=== PATIENT | male | born 1990 | race American Indian/Alaskan Native ===

== ENCOUNTER 2016-08-22 22:45 | Emergency (ER) | payer MEDICAID, OTHER ==
[~2016-08-22] VITALS: Ht 188 cm; Wt 108.9 kg
[~2016-08-22 22:45] MED LIST: ALBU0.084; PROAIR
[2016-08-22] MEDS ORDERED: ALBUTEROL SULF 2.5 MG/0.5ML(0.5%) NEB SOLN NEB ONE (23:30)
[2016-08-22] MEDS ORDERED: IPRATROPIUM BROM 0.5 MG/2.5ML INH SOL NEB ONE (23:30)
[2016-08-22] MEDS ORDERED: methylPREDNISolone SOD SUCC 125 MG/2 ML VL IV ONE (23:45)
[2016-08-23] MEDS ORDERED: LORazepam 2MG/ML-1ML VIAL IV ONE (00:15)
[2016-08-23 01:20] LABS: Basophils # (auto) 0.1 uL; Basophils % (auto) 0.6 % (0.0-2.0); Eosinophils # (auto) 0.1 uL; Eosinophils % (auto) 1.7 % (0.0-7.0); Hemoglobin 15.1 g/dL (13.5-17.5); Lymphocytes # (auto) 1.1 uL; Lymphocytes % (auto) 12.9 % (10.0-50.0); Mean Corpuscular Hemoglobin 30.7 pg (28.0-32.0); Mean Corpuscular Hgb Conc. 32.9 g/dL (32.0-36.0); Mean Corpuscular Volume 93.1 fL (80.0-100.0); Mean Platelet Volume 9.4 fL (7.4-10.4); Monocytes % (auto) 12.1 % (0.0-12.0); Neutrophils % (auto) 72.7 % (37.0-80.0); Platelet Count (auto) 249 10^3/uL (140-450); Red Cell Distribution Width 12.6 % (11.6-16.0); White Blood Cell 8.2 10^3/uL (4.4-10.8)
[2016-08-23 01:21] LABS: Albumin 3.8 g/dL (3.4-5.0); BUN/Creatinine Ratio 12.8; Calcium 8.8 mg/dL (8.5-10.1); Magnesium 1.8 mg/dL (1.6-2.6); Potassium 3.5 mmol/L (3.5-5.1)
[2016-08-23 01:24] LABS: Bilirubin, Total 0.4 mg/dL (0.2-1.0); Total Protein 7.3 g/dL (6.4-8.2)
[2016-08-23] MEDS ORDERED: diphenhdrAMINE HCL 50 MG/1 ML VL ONE (01:36)
[2016-08-23] MEDS ORDERED: ALBUTEROL SULF 2.5 MG/0.5ML(0.5%) NEB SOLN NEB ONE (02:00)
[2016-08-23] MEDS ORDERED: diphenhdrAMINE HCL 50 MG/1 ML VL IV ONE (02:00)
[2016-08-23] MEDS ORDERED: IPRATROPIUM BROM 0.5 MG/2.5ML INH SOL NEB ONE (02:00)
[2016-08-23] MEDS ORDERED: SODIUM CHLORIDE 0.9% 1,000 ML IV ONE (02:00)
[2016-08-23 04:00] VITALS: BP 121/71
[2016-08-24] MEDS ORDERED: ALPR0.25 PO (09:57)
== END 2016-08-23 06:53 | disposition left against medical advice (07) ==
LOC: ER 23:04
DX: J45.909 Unspecified asthma, uncomplicated (principal); R06.02 Shortness of breath; Z53.21 Procedure and treatment not carried out due to patient leaving prior to being seen by health care provider
CPT/HCPCS: 36415; 36600; 71020; 80053; 82805; 83735; 85025; 94640; 94761; 96361; 96374; 96375; J1200; J2060; J2930

== ENCOUNTER 2016-08-24 05:44 | Emergency (ER) | payer MEDICAID ==
[~2016-08-24] VITALS: Ht 185.4 cm; Wt 108.9 kg
[2016-08-24 06:39] LABS: Basophils # (auto) 0 uL; Basophils % (auto) 0.1 % (0.0-2.0); Eosinophils # (auto) 0 uL; Eosinophils % (auto) 0.1 % (0.0-7.0); Hematocrit 44.7 % (41.0-53.0); Hemoglobin 14.9 g/dL (13.5-17.5); Lymphocytes # (auto) 0.7 uL; Mean Corpuscular Hemoglobin 31.2 pg (28.0-32.0); Mean Corpuscular Hgb Conc. 33.4 g/dL (32.0-36.0); Mean Corpuscular Volume 93.2 fL (80.0-100.0); Mean Platelet Volume 8.9 fL (7.4-10.4); Monocytes # (auto) 0.7 uL; Monocytes % (auto) 7.8 % (0.0-12.0); Neutrophils # (auto) 7.8 uL; Platelet Count (auto) 249 10^3/uL (140-450); Red Cell Distribution Width 13.1 % (11.6-16.0); White Blood Cell 9.2 10^3/uL (4.4-10.8)
[2016-08-24 07:07] LABS: INR 1.08 (0.9-1.15); Prothrombin Time 11.1 sec (9.37-12.3)
[2016-08-24 07:33] LABS: Albumin 3.9 g/dL (3.4-5.0); BUN/Creatinine Ratio 14.3; Bilirubin, Total 0.6 mg/dL (0.2-1.0); Calcium 8.5 mg/dL (8.5-10.1); Magnesium 1.9 mg/dL (1.6-2.6); Potassium 3.7 mmol/L (3.5-5.1); Total Protein 7.6 g/dL (6.4-8.2)
[2016-08-24] MEDS ORDERED: ALBUTEROL SULF 2.5 MG/0.5ML(0.5%) NEB SOLN HHN STA (08:58)
[2016-08-24] MEDS ORDERED: methylPREDNISolone SOD SUCC 125 MG/2 ML VL IV ONE (09:00)
[2016-08-24] MEDS ORDERED: IPRATROPIUM BROM 0.5 MG/2.5ML INH SOL NEB ONE (09:00)
[2016-08-24] MEDS ORDERED: SODIUM CHLORIDE 0.9% 1,000 ML IV ONE (09:00)
[2016-08-24] MEDS ORDERED: ALPR0.25 PO (09:57)
[2016-08-24 10:43] VITALS: BP 132/65
== END 2016-08-24 10:46 | disposition home or self-care (01) ==
LOC: ER 05:46
DX: J45.901 Unspecified asthma with (acute) exacerbation (principal); F17.210 Nicotine dependence, cigarettes, uncomplicated; F12.10 Cannabis abuse, uncomplicated
CPT/HCPCS: 36415; 71010; 80053; 83735; 84484; 85025; 85610; 85730; 93005; 94644; 94761; 96361; 96374; 99285; G0434; J2930; J7030

== ENCOUNTER → 2018-11-10 | Outpatient (CLI) | payer BC ==
[~2018-11-10] MED LIST changes: +ALPR0.25 PO
[2018-11-10 15:21] LABS: Urine Blood Negative /uL (Negative)
== END | disposition home or self-care (01) ==
LOC: LAB 14:53
PROVIDERS: ATTEND Urology
DX: R31.9 Hematuria, unspecified (principal)
CPT/HCPCS: 81003; 87086

== ENCOUNTER 2019-01-30 09:13 | Day surgery (SDC) | payer BC ==
[2019-01-24 13:21] LABS: Basophils # (auto) 0.1 uL; Basophils % (auto) 1.5 % (0.0-2.0); Eosinophils # (auto) 0.2 uL; Eosinophils % (auto) 2.9 % (0.0-7.0); Hematocrit 48.7 % (41.0-53.0); Hemoglobin 16.9 g/dL (13.5-17.5); Lymphocytes # (auto) 2.1 uL; Lymphocytes % (auto) 28.3 % (10.0-50.0); Mean Corpuscular Hgb Conc. 34.6 g/dL (32.0-36.0); Mean Corpuscular Volume 92.4 fL (80.0-100.0); Monocytes # (auto) 0.6 uL; Monocytes % (auto) 7.6 % (0.0-12.0); Neutrophils # (auto) 4.5 uL; Neutrophils % (auto) 59.7 % (37.0-80.0); Nucleated Red Blood Cells % 0.1 %; Platelet Count (auto) 282 10^3/uL (140-450); Red Blood Cells 5.27 10^6/uL (4.5-5.90); Red Cell Distribution Width 12.8 % (11.8-14.3); White Blood Cell 7.5 10^3/uL (4.4-10.8)
[2019-01-24 13:27] LABS: Albumin 4.2 g/dL (3.4-5.0); Anion Gap 8 (5-15); Calcium 9.6 mg/dL (8.5-10.1); Carbon Dioxide 28 mmol/L (21-32); Chloride 105 mmol/L (98-107); Glucose 89 mg/dL (74-106); Potassium 4.4 mmol/L (3.5-5.1); Sodium 141 mmol/L (136-145)
[2019-01-24 13:38] LABS: INR 0.94 (0.9-1.15); Partial Thromboplastin Time 26.9 sec (23.64-32.05)
[2019-01-24 13:41] LABS: Alanine Aminotransferase 54 U/L (16-61); Alkaline Phosphatase 136 U/L (45-117); Aspartate Aminotransferase 27 U/L (15-37); BUN/Creatinine Ratio 9.2; Blood Urea Nitrogen 10 mg/dL (7-18); GFR African American 105 mL/min; GFR Non-African American 87 mL/min
[2019-01-24 14:01] LABS: Bilirubin, Total 0.6 mg/dL (0.2-1.0); Total Protein 8.1 g/dL (6.4-8.2)
[2019-01-24 15:35] LABS: Urine Bacteria NONE SEEN /hpf (None Seen); Urine Blood Negative /uL (Negative); Urine Specific Gravity 1.016 (1.001-1.035); Urine WBC <1 /hpf (0 - 3)
[~2019-01-30] VITALS: Ht 182.9 cm; Wt 113.4 kg
[~2019-01-30 09:13] MED LIST changes: -ALBU0.084; +ALBUAER3 IN; +ALBUTEROL SULF 2.5 MG/0.5ML(0.5%) NEB SOLN NEB ONE; -ALPR0.25 PO; +CIPROFLOXACIN 400MG/200ML 200 ML IV ONE; +IPRATROPIUM BROM 0.5 MG/2.5ML INH SOL NEB ONE; -PROAIR
[2019-01-30] MEDS ORDERED: fentaNYL CITRATE 100 MCG/2 ML VL ONE (09:45)
[2019-01-30] MEDS ORDERED: ONDANSETRON HCL 4 MG/2 ML VIAL ONE (09:45)
[2019-01-30] MEDS ORDERED: PROPOFOL 10 MG/ML 20 ML IV ONE (09:45)
[2019-01-30] MEDS ORDERED: SODIUM CHLORIDE LOCK 10 ML ONE (09:45)
[2019-01-30] MEDS ORDERED: MIDAZOLAM HCL 1MG/1ML-2 ML VIAL ONE (09:45)
[2019-01-30] MEDS ORDERED: CIPROFLOXACIN 400MG/200ML 200 ML IV ONE (11:14)
[2019-01-30] MEDS ORDERED: METOCLOPRAMIDE HCL 5MG/ml INJ 2ml VIAL IV ONE (11:30)
[2019-01-30] MEDS ORDERED: HYDROmorphone HCL 2 MG/ML VL IV PRN (11:30)
[2019-01-30] MEDS ORDERED: KETOROLAC TROMETH 15 mg/ml 1ML VL IV ONE (11:30)
[2019-01-30] MEDS ORDERED: IPRATROPIUM BROM 0.5 MG/2.5ML INH SOL NEB ONE (12:15)
[2019-01-30] MEDS ORDERED: ALBUTEROL SULF 2.5 MG/0.5ML(0.5%) NEB SOLN NEB ONE (12:15)
[2019-01-30 13:00] VITALS: BP 112/69
[2019-01-30] MEDS ORDERED: ALBUTEROL SULF 2.5 MG/0.5ML(0.5%) NEB SOLN ONE (14:50)
== END 2019-01-30 13:10 | disposition home or self-care (01) ==
LOC: SUR 09:13
PROVIDERS: ATTEND Urology
DX: N36.8 Other specified disorders of urethra (principal); R31.9 Hematuria, unspecified; R32 Unspecified urinary incontinence; J45.909 Unspecified asthma, uncomplicated; K64.4 Residual hemorrhoidal skin tags; E66.8 Other obesity; I10 Essential (primary) hypertension; F31.9 Bipolar disorder, unspecified; F17.210 Nicotine dependence, cigarettes, uncomplicated; F41.9 Anxiety disorder, unspecified; Z68.35 Body mass index [BMI] 35.0-35.9, adult; Z79.899 Other long term (current) drug therapy; Z88.1 Allergy status to other antibiotic agents
CPT/HCPCS: 36415; 52000; 80053; 81001; 85025; 85610; 85730; C1769; J0744; J2250; J2405; J2704; J3010; J7030

== ENCOUNTER 2022-03-20 12:14 | Emergency (ER) | payer BC ==
[~2022-03-20] VITALS: Ht 185.4 cm; Wt 123.3 kg
[~2022-03-20 12:14] MED LIST changes: -ALBUTEROL SULF 2.5 MG/0.5ML(0.5%) NEB SOLN NEB ONE; -CIPROFLOXACIN 400MG/200ML 200 ML IV ONE; -IPRATROPIUM BROM 0.5 MG/2.5ML INH SOL NEB ONE
[2022-03-20 13:30] LABS: Urine Bacteria NONE SEEN /hpf (None Seen); Urine Blood Negative /uL (Negative); Urine Mucus FEW (None Seen); Urine WBC <1 /hpf (0 - 3)
[2022-03-20 13:48] LABS: Basophils # (auto) 0.1 10 ^3/uL (0-0.2); Basophils % (auto) 1.2 % (0.0-2.0); Eosinophils # (auto) 0.3 10 ^3/uL (0-0.8); Eosinophils % (auto) 3.6 % (0.0-7.0); Hematocrit 49.4 % (41.0-53.0); Hemoglobin 17.1 g/dL (13.5-17.5); Lymphocytes # (auto) 2.1 10 ^3/uL (0.4-5.4); Lymphocytes % (auto) 25.5 % (10.0-50.0); Mean Corpuscular Hemoglobin 31.3 pg (28.0-32.0); Mean Corpuscular Hgb Conc. 34.5 g/dL (32.0-36.0); Mean Corpuscular Volume 90.8 fL (80.0-100.0); Monocytes # (auto) 0.6 10 ^3/uL (0-1.3); Monocytes % (auto) 6.9 % (0.0-12.0); Neutrophils # (auto) 5.1 10 ^3/uL (1.6-8.6); Neutrophils % (auto) 62.8 % (37.0-80.0); Nucleated Red Blood Cells % 0.1 %; Red Blood Cells 5.45 10^6/uL (4.5-5.90); Red Cell Distribution Width 12.7 % (11.8-14.3); White Blood Cell 8.1 10^3/uL (4.4-10.8)
[2022-03-20] MEDS ORDERED: KETOROLAC TROMETH 60MG/2ML VIAL IM ONE (14:15)
[2022-03-20 14:22] LABS: Albumin 4.2 g/dL (3.4-5.0); Calcium 9.8 mg/dL (8.5-10.1); Potassium 4.1 mmol/L (3.5-5.1)
[2022-03-20 14:26] LABS: Bilirubin, Total 0.8 mg/dL (0.2-1.0); Total Protein 7.7 g/dL (6.4-8.2)
[2022-03-20] MEDS ORDERED: TRAM-297 PO (14:53)
[2022-03-20 16:40] VITALS: BP 108/84
== END 2022-03-20 16:45 | disposition home or self-care (01) ==
LOC: ER 12:14
DX: R10.9 Unspecified abdominal pain (principal); R11.0 Nausea; R61 Generalized hyperhidrosis; F17.210 Nicotine dependence, cigarettes, uncomplicated; F12.10 Cannabis abuse, uncomplicated; Z88.6 Allergy status to analgesic agent
CPT/HCPCS: 36415; 74176; 80053; 81001; 85025; 96372; 99284; J1885

== ENCOUNTER 2022-06-02 17:07 | Inpatient (IN) | payer BC ==
[~2022-06-02] VITALS: Ht 185.4 cm; Wt 127.3 kg
[~2022-06-02 17:07] MED LIST changes: +TRAM-297 PO
[2022-06-02] MEDS ORDERED: ALBUTEROL SULF 2.5 MG/0.5ML(0.5%) NEB SOLN NEB ONE ×4 (17:15→22:45)
[2022-06-02] MEDS ORDERED: IPRATROPIUM BROM 0.5 MG/2.5ML INH SOL NEB ONE ×3 (17:15→22:45)
[2022-06-02] MEDS ORDERED: DexAMETHasone SOD PHOS 10MG/1ML VIAL INJ IM ONE (17:15)
[2022-06-02] MEDS ORDERED: MAGNESIUM SULFATE 1GM/100ML 100 ML IV ONE (17:30)
[2022-06-02 17:54] LABS: Basophils # (auto) 0.1 10 ^3/uL (0-0.2); Eosinophils # (auto) 0.1 10 ^3/uL (0-0.8); Hematocrit 46.3 % (41.0-53.0); Hemoglobin 16.5 g/dL (13.5-17.5); Lymphocytes # (auto) 0.5 10 ^3/uL (0.4-5.4); Lymphocytes % (auto) 4.7 % (10.0-50.0); Mean Corpuscular Hemoglobin 32.7 pg (28.0-32.0); Mean Corpuscular Hgb Conc. 35.6 g/dL (32.0-36.0); Mean Corpuscular Volume 91.7 fL (80.0-100.0); Monocytes # (auto) 0.3 10 ^3/uL (0-1.3); Monocytes % (auto) 3.5 % (0.0-12.0); Neutrophils # (auto) 8.7 10 ^3/uL (1.6-8.6); Neutrophils % (auto) 89.8 % (37.0-80.0); Red Blood Cells 5.05 10^6/uL (4.5-5.90); Red Cell Distribution Width 13.4 % (11.8-14.3); White Blood Cell 9.7 10^3/uL (4.4-10.8)
[2022-06-02 18:03] LABS: Albumin 4.1 g/dL (3.4-5.0); Calcium 9.4 mg/dL (8.5-10.1); Potassium 4.7 mmol/L (3.5-5.1)
[2022-06-02 18:05] LABS: BUN/Creatinine Ratio 12.7
[2022-06-02 18:08] LABS: Bilirubin, Total 0.7 mg/dL (0.2-1.0); Total Protein 8.3 g/dL (6.4-8.2)
[2022-06-02] MEDS ORDERED: ALPRAZolam 0.5 MG TAB PO ONE (22:15)
[2022-06-02] MEDS ORDERED: HYDROcodone-ACET 5/325MG TAB PO ONE (22:15)
[2022-06-02] MEDS ORDERED: ACETAMINOPHEN 325 MG TAB PO PRN (23:15)
[2022-06-02] MEDS ORDERED: NITROGLYCERIN 0.4 MG SL TAB SL PRN (23:15)
[2022-06-02] MEDS ORDERED: ONDANSETRON HCL 4 MG/2 ML VIAL IV PRN (23:15)
[2022-06-02] MEDS ORDERED: MORPHINE SULFATE INJ 2 MG/ml SYRG IV PRN (23:15)
[2022-06-03] VITALS (7 sets, daily range): BP systolic 126–145; BP diastolic 66–76
[2022-06-03] MEDS: TEMAZEPAM 15 MG CAP PO PRN ×2 (01:15→22:14)
[2022-06-03] MEDS: ALBUTEROL SULF 2.5 MG/0.5ML(0.5%) NEB SOLN NEB SCH ×4 (02:24→13:29)
[2022-06-03] MEDS: IPRATROPIUM BROM 0.5 MG/2.5ML INH SOL NEB SCH ×5 (02:24→19:45)
[2022-06-03] MEDS ORDERED: ALPRAZolam 0.5 MG TAB PO ONE (03:30)
[2022-06-03 04:11] LABS: Basophils # (auto) 0 10 ^3/uL (0-0.2); Basophils % (auto) 0.3 % (0.0-2.0); Eosinophils # (auto) 0 10 ^3/uL (0-0.8); Hematocrit 45.5 % (41.0-53.0); Hemoglobin 15.9 g/dL (13.5-17.5); Lymphocytes # (auto) 0.5 10 ^3/uL (0.4-5.4); Mean Corpuscular Hemoglobin 32.4 pg (28.0-32.0); Mean Corpuscular Volume 92.6 fL (80.0-100.0); Monocytes # (auto) 0.2 10 ^3/uL (0-1.3); Neutrophils # (auto) 7.8 10 ^3/uL (1.6-8.6); Neutrophils % (auto) 91.7 % (37.0-80.0); Nucleated Red Blood Cells % 0.1 %; Red Blood Cells 4.92 10^6/uL (4.5-5.90); Red Cell Distribution Width 13.5 % (11.8-14.3); White Blood Cell 8.5 10^3/uL (4.4-10.8)
[2022-06-03 04:22] LABS: Calcium 9.5 mg/dL (8.5-10.1); Potassium 4.1 mmol/L (3.5-5.1)
[2022-06-03] MEDS: PANTOPRAZOLE 40 MG TAB PO SCH (09:00)
[2022-06-03] MEDS: methylPREDNISolone SOD SUCC 125 MG/2 ML VL IV SCH ×2 (09:01→21:17)
[2022-06-03] MEDS ORDERED: ALPR0.254 PO (09:20)
[2022-06-03] MEDS ORDERED: AZITHROMYCIN 250 MG TAB PO ONE (10:15)
[2022-06-03] MEDS ORDERED: ALBUTEROL SULF 2.5 MG/0.5ML(0.5%) NEB SOLN NEB ONE (16:15)
[2022-06-03] MEDS ORDERED: IOHEXOL 350 MG/ML 100ML IJ ONE (16:32)
[2022-06-03] MEDS ORDERED: LEVALBUTEROL HCL 1.25 MG/3 ML NEB NEB SCH (18:00)
[2022-06-03 18:27] LABS: Urine Bacteria NONE SEEN /hpf (None Seen); Urine Blood Negative /uL (Negative); Urine WBC <1 /hpf (0 - 3)
[2022-06-03 18:41] LABS: Amphetamine Screen, Urine NEGATIVE (NEGATIVE); Barbiturate Scree,Urine NEGATIVE (NEGATIVE); Benzodiazephine Screen, Urine POSITIVE (NEGATIVE); Cannabinoid Screen, Urine NEGATIVE (NEGATIVE); Cocaine Screen, Urine NEGATIVE (NEGATIVE); Phencyclidine Screen, Urine NEGATIVE (NEGATIVE)
[2022-06-03 18:49] LABS: Opiate Scree,Urine NEGATIVE (NEGATIVE)
[2022-06-03 18:55] LABS: Urine Specific Gravity > 1.050 (1.001-1.035)
[2022-06-03] MEDS: LEVALBUTEROL HCL 1.25 MG/3 ML NEB NEB SCH ×2 (19:45→22:09)
[2022-06-03] MEDS: ALPRAZolam 0.25 MG TAB PO SCH (21:17)
[2022-06-04] MEDS: IPRATROPIUM BROM 0.5 MG/2.5ML INH SOL NEB SCH ×5 (02:51→18:30)
[2022-06-04] MEDS: LEVALBUTEROL HCL 1.25 MG/3 ML NEB NEB SCH ×6 (02:51→23:39)
[2022-06-04 05:00] VITALS: BP 125/67
[2022-06-04] MEDS: traMADol HCL 50 MG TAB PO SCH ×5 (06:00→23:17)
[2022-06-04 08:00] VITALS: BP 121/68
[2022-06-04 09:00] VITALS: BP 121/60
[2022-06-04] MEDS: PANTOPRAZOLE 40 MG TAB PO SCH (09:59)
[2022-06-04] MEDS: methylPREDNISolone SOD SUCC 125 MG/2 ML VL IV SCH ×2 (09:59→21:50)
[2022-06-04] MEDS: AZITHROMYCIN 250 MG TAB PO SCH (10:00)
[2022-06-04] MEDS: ALPRAZolam 0.25 MG TAB PO SCH ×2 (10:00→21:50)
[2022-06-04] MEDS: NICOTINE 21MG/24 HR TOPICAL PATCH TD SCH (12:45)
[2022-06-04 13:00] VITALS: BP 132/79
[2022-06-04 17:00] VITALS: BP 126/74
[2022-06-04 22:00] VITALS: BP 142/77
[2022-06-04] MEDS: TEMAZEPAM 15 MG CAP PO PRN (23:13)
[2022-06-05] MEDS: IPRATROPIUM BROM 0.5 MG/2.5ML INH SOL NEB SCH ×3 (02:33→11:33)
[2022-06-05] MEDS: LEVALBUTEROL HCL 1.25 MG/3 ML NEB NEB SCH ×3 (02:33→11:33)
[2022-06-05] MEDS ORDERED: TEMAZEPAM 15 MG CAP PO ONE (02:45)
[2022-06-05 05:00] VITALS: BP 128/69
[2022-06-05] MEDS: traMADol HCL 50 MG TAB PO SCH ×2 (06:00→12:00)
[2022-06-05 09:00] VITALS: BP 140/86
[2022-06-05] MEDS: PANTOPRAZOLE 40 MG TAB PO SCH (10:36)
[2022-06-05] MEDS: methylPREDNISolone SOD SUCC 125 MG/2 ML VL IV SCH (10:36)
[2022-06-05] MEDS: ALPRAZolam 0.25 MG TAB PO SCH (10:37)
[2022-06-05] MEDS: AZITHROMYCIN 250 MG TAB PO SCH (10:38)
[2022-06-05] MEDS: NICOTINE 21MG/24 HR TOPICAL PATCH TD SCH (10:39)
[2022-06-05] MEDS ORDERED: FLUT500M2 INH (10:45)
[2022-06-05 12:00] VITALS: BP 114/80
== END 2022-06-05 12:40 | disposition home or self-care (01) | DRG 189 ==
LOC: ER 17:07 → TELE 23:19 → TELE-EAST 06-03 08:08
PROVIDERS: ADMIT Nurse Practitioner; ATTEND Internal Medicine
DX: J96.21 Acute and chronic respiratory failure with hypoxia (principal); J45.902 Unspecified asthma with status asthmaticus; F17.210 Nicotine dependence, cigarettes, uncomplicated; F41.9 Anxiety disorder, unspecified; Z20.822 Contact with and (suspected) exposure to COVID-19; Z71.6 Tobacco abuse counseling; Z88.8 Allergy status to other drugs, medicaments and biological substances
CPT/HCPCS: 36415; 71045; 71275; 80048; 80053; 80307; 81001; 82306; 83036; 83735; 84439; 84443; 84484; 85025; 85379; 87426; 93005; 93306; 93970; 94640; 96365; 96372; 99291; G0378; J1100

== ENCOUNTER 2023-02-01 19:25 | Inpatient (IN) | payer BC ==
[~2023-02-01] VITALS: Ht 185.4 cm; Wt 131.4 kg
[~2023-02-01 19:25] MED LIST changes: +ALPR0.254 PO; +FLUT500M2 INH
[2023-02-01] MEDS: NOREPINEPHRINE 8 MG/250ML KIT 250 ML IV SCH (19:45)
[2023-02-01 19:54] VITALS: PULSE 110; RESP 28; O2SAT 88
[2023-02-01] MEDS: MIDAZOLAM DRIP 50 mg/50mL 50 ML IV SCH (19:57)
[2023-02-01] MEDS ORDERED: MIDAZOLAM DRIP 50 mg/50mL 50 ML IV ONE (19:57)
[2023-02-01 20:00] VITALS: BP 219/133; PULSE 117; RESP 20; O2SAT 90
[2023-02-01] MEDS ORDERED: DexAMETHasone SOD PHOS 10MG/1ML VIAL INJ IV ONE (20:00)
[2023-02-01] MEDS ORDERED: PIPERACILLIN-TAZOB 3.375GM 100 ML IV ONE (20:00)
[2023-02-01] MEDS ORDERED: VANCOMYCIN 1GM/250ML 250 ML IV ONE (20:00)
[2023-02-01] MEDS ORDERED: IOHEXOL 300 MG/ML 100ML BOTTLE IJ ONE (20:02)
[2023-02-01] MEDS ORDERED: IPRATROPIUM BROM 0.5 MG/2.5ML INH SOL NEB ONE (20:15)
[2023-02-01] MEDS ORDERED: ALBUTEROL SULF 2.5 MG/0.5ML(0.5%) NEB SOLN NEB ONE (20:15)
[2023-02-01 20:17] LABS: Basophils # (auto) 0.1 10 ^3/uL (0-0.2); Basophils % (auto) 0.6 % (0.0-2.0); Eosinophils # (auto) 0.3 10 ^3/uL (0-0.8); Eosinophils % (auto) 1.8 % (0.0-7.0); Hematocrit 46.3 % (41.0-53.0); Lymphocytes # (auto) 6.6 10 ^3/uL (0.4-5.4); Lymphocytes % (auto) 43.3 % (10.0-50.0); Mean Corpuscular Hemoglobin 32.1 pg (28.0-32.0); Mean Corpuscular Hgb Conc. 32.4 g/dL (32.0-36.0); Monocytes # (auto) 0.7 10 ^3/uL (0-1.3); Monocytes % (auto) 4.8 % (0.0-12.0); Neutrophils # (auto) 7.6 10 ^3/uL (1.6-8.6); Neutrophils % (auto) 49.5 % (37.0-80.0); Nucleated Red Blood Cells % 0.2 %; Red Blood Cells 4.67 10^6/uL (4.5-5.90); White Blood Cell 15.3 10^3/uL (4.4-10.8)
[2023-02-01 20:46] LABS: Urine Bacteria FEW /hpf (None Seen); Urine Blood 1+ /uL (Negative); Urine Mucus FEW (None Seen); Urine Specific Gravity 1.019 (1.001-1.035); Urine WBC 18 /hpf (0 - 3)
[2023-02-01] MEDS ORDERED: ROCURONIUM 10MG/ML 10ML VIAL IV ONE ×3 (21:00→22:45)
[2023-02-01] MEDS ORDERED: SODIUM BICARBONATE 50ML VIAL 50 ML in SOD CHL 0.45% 1,000 ML IV ONE (21:00)
[2023-02-01] MEDS ORDERED: SODIUM BICARBONATE 8.4 % INJ 50ML VIAL IV ONE ×2 (21:44→23:00)
[2023-02-01] MEDS: fentaNYL Drip 2500mCg/250mlNS 250 ML IV SCH (21:47)
[2023-02-01 21:55] VITALS: BP 186/108; PULSE 122; RESP 28; O2SAT 95
[2023-02-01 22:11] LABS: Lactic Acid w/Reflex 3.3 mmol/L (0.4-2.0)
[2023-02-01] MEDS ORDERED: SODIUM BICARB 50ML SYR 150 ML in SODIUM CHLORIDE 0.9% 1,000 ML IV ONE (22:15)
[2023-02-01 22:25] LABS: Albumin 3.7 g/dL (3.4-5.0); Calcium 7.9 mg/dL (8.5-10.1); Magnesium 3.1 mg/dL (1.6-2.6)
[2023-02-01 22:26] LABS: BUN/Creatinine Ratio 13.1 (10.0-20.0); Bilirubin, Total 0.5 mg/dL (0.2-1.0); Total Protein 7.4 g/dL (6.4-8.2)
[2023-02-01 22:28] LABS: Potassium 6.6 mmol/L (3.5-5.1)
[2023-02-01 22:35] VITALS: BP 197/103; PULSE 109; RESP 24; TEMP 99; O2SAT 95
[2023-02-01] MEDS ORDERED: DEXTROSE (50%) 50ML SYRG IV ONE (23:00)
[2023-02-01] MEDS ORDERED: InsuLIN REG 1unit/0.01ml Soln (100units/ml) IV ONE (23:00)
[2023-02-01] MEDS ORDERED: CALCIUM GLUC 1,000mg/50ml-NS 50 ML IV ONE (23:00)
[2023-02-02] VITALS (92 sets, daily range): BP systolic 114–195; BP diastolic 69–119; PULSE 100–150; RESP 18–54; TEMP 101.1–104.5; O2SAT 94–100
[2023-02-02] MEDS ORDERED: hydrALAZINE HCL 20 MG/ML VL IV ONE (00:15)
[2023-02-02] MEDS ORDERED: levETIRAcetam 500 MG/5ML INJ IV ONE (00:41)
[2023-02-02] MEDS ORDERED: ROCURONIUM 10MG/ML 10ML VIAL IV ONE ×2 (00:43→01:00)
[2023-02-02 01:10] LABS: Alcohol, Urine < 3.0 mg/dL (0-10); Amphetamine Screen, Urine NEGATIVE (NEGATIVE); Barbiturate Scree,Urine NEGATIVE (NEGATIVE); Benzodiazephine Screen, Urine POSITIVE (NEGATIVE); Cannabinoid Screen, Urine NEGATIVE (NEGATIVE)
[2023-02-02 01:13] LABS: Albumin 4.1 g/dL (3.4-5.0); BUN/Creatinine Ratio 15.2 (10.0-20.0); Calcium 8.7 mg/dL (8.5-10.1)
[2023-02-02] MEDS ORDERED: SODIUM CHLORIDE 0.9% 1,000 ML IV SCH (01:15)
[2023-02-02] MEDS ORDERED: ONDANSETRON HCL 4 MG/2 ML VIAL IV PRN (01:15)
[2023-02-02] MEDS ORDERED: NITROGLYCERIN 0.4 MG SL TAB SL PRN (01:15)
[2023-02-02] MEDS ORDERED: MORPHINE SULFATE INJ 2 MG/ml SYRG IV PRN (01:15)
[2023-02-02 01:16] LABS: Bilirubin, Total 0.9 mg/dL (0.2-1.0); Total Protein 7.7 g/dL (6.4-8.2)
[2023-02-02 01:18] LABS: Cocaine Screen, Urine NEGATIVE (NEGATIVE); Opiate Scree,Urine NEGATIVE (NEGATIVE); Phencyclidine Screen, Urine NEGATIVE (NEGATIVE)
[2023-02-02] MEDS: ACETAMINOPHEN 325 MG TAB PO PRN ×2 (03:44→19:54)
[2023-02-02] MEDS: MIDAZOLAM DRIP 50 mg/50mL 50 ML IV SCH ×4 (06:40→21:52)
[2023-02-02] MEDS ORDERED: ENOXAPARIN SOD 40 MG/0.4 ML SYRINGE SC SCH (10:00)
[2023-02-02] MEDS ORDERED: levoFLOXacin 500MG 100 ML IV SCH (10:00)
[2023-02-02 10:14] LABS: Magnesium 2.5 mg/dL (1.6-2.6)
[2023-02-02 10:16] LABS: Total Protein 7.7 g/dL (6.4-8.2)
[2023-02-02 10:25] LABS: Lactic Acid w/Reflex 2.9 mmol/L (0.4-2.0)
[2023-02-02 10:29] LABS: Hematocrit 54.6 % (41.0-53.0); Hemoglobin 18.6 g/dL (13.5-17.5); Mean Corpuscular Volume 94.2 fL (80.0-100.0); Red Cell Distribution Width 13.1 % (11.8-14.3); White Blood Cell 28.9 10^3/uL (4.4-10.8)
[2023-02-02 10:36] LABS: Basophils % (manual) 0 (0.0-2.0); Blast Cells 0; Eosinophils % (manual) 0 (0-7); Metamyelocytes % 0; Myelocytes % 0; Promyelocytes % 0; Reactive Lymphocytes 0
[2023-02-02 10:53] LABS: BUN/Creatinine Ratio 16.4 (10.0-20.0)
[2023-02-02 10:54] LABS: Albumin 3.9 g/dL (3.4-5.0); Bilirubin, Total 0.6 mg/dL (0.2-1.0); Calcium 8.6 mg/dL (8.5-10.1)
[2023-02-02] MEDS: PIPERACILLIN-TAZOB 3.375GM 100 ML IV SCH ×2 (11:20→18:35)
[2023-02-02] MEDS: PANTOPRAZOLE 40 MG/10 ML VIAL INJ IV SCH (11:20)
[2023-02-02] MEDS: fentaNYL Drip 2500mCg/250mlNS 250 ML IV SCH ×2 (11:35→21:52)
[2023-02-02] MEDS ORDERED: METOPROLOL TARTRATE 1MG/1ML-5ML VIAL IV ONE (12:15)
[2023-02-02 14:05] LABS: Band Neutrophils % (manual) 3; Lymphocytes % (manual) 2 (10.0-50.0); Monocytes % (manual) 4 (0-12)
[2023-02-02 15:03] LABS: Urine Bacteria FEW /hpf (None Seen); Urine Blood 2+ /uL (Negative); Urine Mucus FEW (None Seen); Urine Specific Gravity 1.028 (1.001-1.035); Urine WBC 96 /hpf (0 - 3)
[2023-02-02] MEDS ORDERED: HEPARIN SODIUM (PORCINE) 5000 UNITS/ML 1ML VIAL IV ONE (15:15)
[2023-02-02] MEDS ORDERED: HEPARIN DRIP/D5W 100UNITS/ML 250 ML IV SCH (15:15)
[2023-02-02] MEDS ORDERED: ASPirin 81 mg TAB PO ONE (15:15)
[2023-02-02 16:34] LABS: INR 1.17 (0.9-1.15); Partial Thromboplastin Time 30.8 SEC (24.5-34.5)
[2023-02-02] MEDS: SODIUM BICARBONATE 50ML VIAL 75 ML in D5W 5% 1,000 ML IV SCH (16:46)
[2023-02-02] MEDS: METOPROLOL TARTRATE 50 MG TAB PO SCH ×2 (17:10→21:40)
[2023-02-02 19:28] LABS: Hemoglobin 17.7 g/dL (13.5-17.5)
[2023-02-02 19:30] LABS: Hematocrit 52.6 % (41.0-53.0); Mean Corpuscular Hemoglobin 32.3 pg (28.0-32.0); Mean Corpuscular Hgb Conc. 33.7 g/dL (32.0-36.0); Mean Corpuscular Volume 95.8 fL (80.0-100.0); Red Blood Cells 5.48 10^6/uL (4.5-5.90); White Blood Cell 27.9 10^3/uL (4.4-10.8)
[2023-02-02 19:41] LABS: Basophils % (manual) 0 (0.0-2.0); Blast Cells 0; Eosinophils % (manual) 0 (0-7); Metamyelocytes % 0; Myelocytes % 0; Promyelocytes % 0; Reactive Lymphocytes 0
[2023-02-02] MEDS: NOREPINEPHRINE 8 MG/250ML KIT 250 ML IV SCH (19:45)
[2023-02-02] MEDS ORDERED: VANCOMYCIN 1GM/250ML 250 ML IV ONE (21:15)
[2023-02-02] MEDS ORDERED: SODIUM CHLORIDE 0.9% 1,000 ML IV ONE (21:15)
[2023-02-02] MEDS ORDERED: ACETAMINOPHEN IV 1000 MG/100ML (10MG/ML) IV ONE (21:15)
[2023-02-02] MEDS ORDERED: VANCOMYCIN PER PHARMACY 0 MG IV SCH (21:15)
[2023-02-02] MEDS ORDERED: dilTIAZem 25 MG/5 ML VIAL IV ONE (21:15)
[2023-02-02] MEDS ORDERED: ACETAMINOPHEN IV 100 ML IV ONE (21:26)
[2023-02-02 21:44] LABS: Band Neutrophils % (manual) 10; Monocytes % (manual) 5 (0-12)
[2023-02-02 21:45] LABS: Lymphocytes % (manual) 5 (10.0-50.0)
[2023-02-03] VITALS (108 sets, daily range): BP systolic 110–185; BP diastolic 2–160; PULSE 110–141; RESP 21–30; TEMP 99.1–103; O2SAT 87–100
[2023-02-03] MEDS: ALBUTEROL SULF 2.5 MG/0.5ML(0.5%) NEB SOLN NEB PRN ×2 (00:18→06:35)
[2023-02-03] MEDS: SODIUM BICARBONATE 50ML VIAL 75 ML in D5W 5% 1,000 ML IV SCH ×3 (01:17→22:30)
[2023-02-03] MEDS ORDERED: dilTIAZem 25 MG/5 ML VIAL IV ONE (02:15)
[2023-02-03] MEDS: MIDAZOLAM DRIP 50 mg/50mL 50 ML IV SCH ×3 (02:34→11:02)
[2023-02-03 02:38] LABS: INR 1.33 (0.9-1.15); Partial Thromboplastin Time 33.3 SEC (24.5-34.5)
[2023-02-03] MEDS: PIPERACILLIN-TAZOB 3.375GM 100 ML IV SCH ×2 (02:48→11:36)
[2023-02-03] MEDS ORDERED: HEPARIN SODIUM (PORCINE) 5000 UNITS/ML 1ML VIAL IV ONE (03:00)
[2023-02-03 04:28] LABS: Hematocrit 49.8 % (41.0-53.0); Mean Corpuscular Hemoglobin 32.1 pg (28.0-32.0); Mean Corpuscular Hgb Conc. 34.1 g/dL (32.0-36.0); Mean Corpuscular Volume 93.9 fL (80.0-100.0); Red Cell Distribution Width 13.1 % (11.8-14.3); White Blood Cell 27.2 10^3/uL (4.4-10.8)
[2023-02-03 04:32] LABS: Basophils % (manual) 0 (0.0-2.0); Blast Cells 0; Eosinophils % (manual) 0 (0-7); Metamyelocytes % 0; Myelocytes % 0; Promyelocytes % 0; Reactive Lymphocytes 0
[2023-02-03 04:47] LABS: Albumin 2.9 g/dL (3.4-5.0); Calcium 7.5 mg/dL (8.5-10.1); Potassium 3.3 mmol/L (3.5-5.1)
[2023-02-03 04:53] LABS: BUN/Creatinine Ratio 16.4 (10.0-20.0); Total Protein 6.8 g/dL (6.4-8.2)
[2023-02-03 05:42] LABS: Lymphocytes % (manual) 7 (10.0-50.0); Monocytes % (manual) 6 (0-12)
[2023-02-03 05:43] LABS: Band Neutrophils % (manual) 18
[2023-02-03] MEDS: fentaNYL Drip 2500mCg/250mlNS 250 ML IV SCH ×2 (06:21→14:32)
[2023-02-03] MEDS: VANCOMYCIN 1GM/250ML 250 ML IV SCH ×2 (08:04→17:16)
[2023-02-03] MEDS: POTASSIUM CHL 20MEQ/100ML 100 ML IV SCH ×2 (08:08→10:01)
[2023-02-03] MEDS: PANTOPRAZOLE 40 MG/10 ML VIAL INJ IV SCH (11:36)
[2023-02-03] MEDS: ASPirin 81 mg TAB PO SCH (11:36)
[2023-02-03] MEDS: METOPROLOL TARTRATE 50 MG TAB PO SCH ×2 (11:36→22:18)
[2023-02-03 13:02] LABS: INR 1.24 (0.9-1.15)
[2023-02-03] MEDS: HEPARIN DRIP/D5W 100UNITS/ML 250 ML IV SCH (14:39)
[2023-02-03] MEDS: LEVALBUTEROL HCL 1.25 MG/3 ML NEB NEB SCH (19:25)
[2023-02-03] MEDS: NOREPINEPHRINE 8 MG/250ML KIT 250 ML IV SCH (19:45)
[2023-02-03 21:54] LABS: INR 1.12 (0.9-1.15); Partial Thromboplastin Time 27.1 SEC (24.5-34.5)
[2023-02-03] MEDS: ATORVASTATIN 20 MG TAB PO SCH (22:18)
[2023-02-03] MEDS: MEROPENEM 1GM IVPB 100 ML IV SCH (22:18)
[2023-02-04] VITALS (100 sets, daily range): BP systolic 107–184; BP diastolic 6–109; PULSE 104–150; RESP 28; TEMP 96.4–101.5; O2SAT 88–100
[2023-02-04] MEDS: LEVALBUTEROL HCL 1.25 MG/3 ML NEB NEB SCH ×2 (00:25→18:10)
[2023-02-04] MEDS: fentaNYL Drip 2500mCg/250mlNS 250 ML IV SCH ×3 (01:30→20:47)
[2023-02-04] MEDS ORDERED: SODIUM BICARBONATE 8.4 % INJ 50ML VIAL IV ONE (01:34)
[2023-02-04] MEDS: VANCOMYCIN 1GM/250ML 250 ML IV SCH ×4 (02:02→20:43)
[2023-02-04] MEDS: MIDAZOLAM DRIP 50 mg/50mL 50 ML IV SCH ×4 (02:40→22:51)
[2023-02-04 04:14] LABS: Basophils # (auto) 0.1 10 ^3/uL (0-0.2); Basophils % (auto) 0.6 % (0.0-2.0); Eosinophils # (auto) 0 10 ^3/uL (0-0.8); Eosinophils % (auto) 0.1 % (0.0-7.0); Hematocrit 45.8 % (41.0-53.0); Hemoglobin 15.9 g/dL (13.5-17.5); Lymphocytes # (auto) 1.3 10 ^3/uL (0.4-5.4); Lymphocytes % (auto) 7.2 % (10.0-50.0); Mean Corpuscular Hemoglobin 32.3 pg (28.0-32.0); Mean Corpuscular Hgb Conc. 34.7 g/dL (32.0-36.0); Monocytes # (auto) 1.1 10 ^3/uL (0-1.3); Monocytes % (auto) 6.5 % (0.0-12.0); Neutrophils % (auto) 85.6 % (37.0-80.0); Red Blood Cells 4.93 10^6/uL (4.5-5.90); Red Cell Distribution Width 13.2 % (11.8-14.3); White Blood Cell 17.5 10^3/uL (4.4-10.8)
[2023-02-04] MEDS ORDERED: HEPARIN SODIUM (PORCINE) 5000 UNITS/ML 1ML VIAL IV ONE (04:15)
[2023-02-04 04:30] LABS: Albumin 2.3 g/dL (3.4-5.0); Calcium 8.2 mg/dL (8.5-10.1)
[2023-02-04 04:35] LABS: BUN/Creatinine Ratio 13.1 (10.0-20.0); Bilirubin, Total 0.8 mg/dL (0.2-1.0); Total Protein 6.2 g/dL (6.4-8.2)
[2023-02-04 04:37] LABS: Potassium 2.9 mmol/L (3.5-5.1)
[2023-02-04] MEDS ORDERED: dilTIAZem 25 MG/5 ML VIAL IV ONE (04:45)
[2023-02-04] MEDS ORDERED: POTASSIUM CHL 20MEQ/100ML 100 ML IV ONE (04:45)
[2023-02-04] MEDS ORDERED: IOHEXOL 350 MG/ML 100ML IJ ONE (05:13)
[2023-02-04] MEDS: MEROPENEM 1GM IVPB 100 ML IV SCH ×3 (06:00→22:28)
[2023-02-04] MEDS: HEPARIN DRIP/D5W 100UNITS/ML 250 ML IV SCH (06:01)
[2023-02-04] MEDS: ACETAMINOPHEN 325 MG TAB PO PRN (06:04)
[2023-02-04] MEDS: ASPirin 81 mg TAB PO SCH (09:43)
[2023-02-04] MEDS: METOPROLOL TARTRATE 50 MG TAB PO SCH ×2 (09:43→20:49)
[2023-02-04] MEDS: PANTOPRAZOLE 40 MG/10 ML VIAL INJ IV SCH (09:43)
[2023-02-04] MEDS ORDERED: LORazepam 2MG/ML-1ML VIAL IV PRN (10:15)
[2023-02-04] MEDS ORDERED: ENOXAPARIN SOD 40 MG/0.4 ML SYRINGE SC ONE (10:45)
[2023-02-04] MEDS ORDERED: POTASSIUM CHL 20MEQ/100ML 100 ML IV SCH (10:45)
[2023-02-04] MEDS: D5W/SOD CHL 0.45%/KCL 20MEQ 1,000 ML IV SCH ×2 (12:05→22:51)
[2023-02-04] MEDS: MAGNESIUM SULFATE 1GM/100ML 100 ML IV SCH ×2 (12:06→13:37)
[2023-02-04] MEDS: POTASSIUM CHL 20MEQ/100ML 100 ML IV SCH ×3 (12:06→15:54)
[2023-02-04] MEDS ORDERED: METOPROLOL TARTRATE 1MG/1ML-5ML VIAL IV ONE (18:30)
[2023-02-04] MEDS: NOREPINEPHRINE 8 MG/250ML KIT 250 ML IV SCH (19:45)
[2023-02-04] MEDS: ATORVASTATIN 20 MG TAB PO SCH (20:49)
[2023-02-05] VITALS (114 sets, daily range): BP systolic 118–273; BP diastolic 61–131; PULSE 84–118; RESP 20–28; TEMP 97.3–98.6; O2SAT 95–100
[2023-02-05] MEDS: LEVALBUTEROL HCL 1.25 MG/3 ML NEB NEB SCH ×4 (00:36→18:40)
[2023-02-05] MEDS: MIDAZOLAM DRIP 50 mg/50mL 50 ML IV SCH ×3 (01:29→20:00)
[2023-02-05] MEDS: VANCOMYCIN 1GM/250ML 250 ML IV SCH ×3 (03:13→18:02)
[2023-02-05] MEDS: fentaNYL Drip 2500mCg/250mlNS 250 ML IV SCH ×3 (03:35→20:00)
[2023-02-05 04:11] LABS: Basophils # (auto) 0 10 ^3/uL (0-0.2); Basophils % (auto) 0.2 % (0.0-2.0); Eosinophils # (auto) 0.1 10 ^3/uL (0-0.8); Eosinophils % (auto) 0.6 % (0.0-7.0); Hematocrit 39.7 % (41.0-53.0); Hemoglobin 13.7 g/dL (13.5-17.5); Lymphocytes # (auto) 0.9 10 ^3/uL (0.4-5.4); Lymphocytes % (auto) 7.6 % (10.0-50.0); Mean Corpuscular Hgb Conc. 34.5 g/dL (32.0-36.0); Mean Corpuscular Volume 92.8 fL (80.0-100.0); Monocytes # (auto) 0.8 10 ^3/uL (0-1.3); Monocytes % (auto) 6.8 % (0.0-12.0); Neutrophils # (auto) 10.5 10 ^3/uL (1.6-8.6); Neutrophils % (auto) 84.8 % (37.0-80.0); Nucleated Red Blood Cells % 0.1 %; Red Blood Cells 4.27 10^6/uL (4.5-5.90); Red Cell Distribution Width 13.1 % (11.8-14.3); White Blood Cell 12.3 10^3/uL (4.4-10.8)
[2023-02-05 04:36] LABS: Albumin 2.2 g/dL (3.4-5.0); BUN/Creatinine Ratio 14.4 (10.0-20.0); Calcium 8.2 mg/dL (8.5-10.1); Potassium 3.6 mmol/L (3.5-5.1)
[2023-02-05 04:39] LABS: Bilirubin, Total 0.6 mg/dL (0.2-1.0)
[2023-02-05] MEDS: MEROPENEM 1GM IVPB 100 ML IV SCH ×3 (05:17→21:43)
[2023-02-05] MEDS: FREE WATER GT SCH ×4 (09:32→21:43)
[2023-02-05] MEDS: D5W/SOD CHL 0.45%/KCL 20MEQ 1,000 ML IV SCH ×2 (09:33→11:56)
[2023-02-05] MEDS: PANTOPRAZOLE 40 MG/10 ML VIAL INJ IV SCH (09:33)
[2023-02-05] MEDS: METOPROLOL TARTRATE 50 MG TAB PO SCH ×2 (09:34→21:43)
[2023-02-05] MEDS: ASPirin 81 mg TAB PO SCH (09:35)
[2023-02-05] MEDS: ENOXAPARIN SOD 40 MG/0.4 ML SYRINGE SC SCH (09:36)
[2023-02-05] MEDS: LABETALOL HCL 5 MG/ML 4ML SYRINGE IV PRN ×3 (09:39→18:02)
[2023-02-05] MEDS ORDERED: VANCOMYCIN 1GM/250ML 250 ML IV SCH (11:00)
[2023-02-05 15:58] LABS: BUN/Creatinine Ratio 15.4 (10.0-20.0); Calcium 8.2 mg/dL (8.5-10.1)
[2023-02-05] MEDS: D5W 5% 1,000 ML IV SCH (17:34)
[2023-02-05] MEDS ORDERED: LABETALOL HCL 5 MG/ML 4ML SYRINGE IV ONE (19:00)
[2023-02-05] MEDS: LORazepam 2MG/ML-1ML VIAL IV PRN (19:59)
[2023-02-05] MEDS: ATORVASTATIN 20 MG TAB PO SCH (21:43)
[2023-02-06] VITALS (78 sets, daily range): BP systolic 0–203; BP diastolic 0–121; PULSE 0–108; RESP 0–21; TEMP 97.9–99.3; O2SAT 0–99
[2023-02-06] MEDS: LEVALBUTEROL HCL 1.25 MG/3 ML NEB NEB SCH ×3 (00:04→13:37)
[2023-02-06] MEDS: VANCOMYCIN 1GM/250ML 250 ML IV SCH ×2 (00:10→05:11)
[2023-02-06] MEDS: MIDAZOLAM DRIP 50 mg/50mL 50 ML IV SCH ×5 (00:37→16:19)
[2023-02-06] MEDS: FREE WATER GT SCH ×5 (01:28→14:00)
[2023-02-06] MEDS: fentaNYL Drip 2500mCg/250mlNS 250 ML IV SCH ×2 (04:26→12:33)
[2023-02-06] MEDS: LABETALOL HCL 5 MG/ML 4ML SYRINGE IV PRN ×4 (04:29→14:13)
[2023-02-06 04:44] LABS: Hematocrit 37.7 % (41.0-53.0); Hemoglobin 12.7 g/dL (13.5-17.5); Mean Corpuscular Hemoglobin 32.1 pg (28.0-32.0); Mean Corpuscular Hgb Conc. 33.7 g/dL (32.0-36.0); Mean Corpuscular Volume 95.2 fL (80.0-100.0); Red Blood Cells 3.96 10^6/uL (4.5-5.90); Red Cell Distribution Width 13.5 % (11.8-14.3); White Blood Cell 12.1 10^3/uL (4.4-10.8)
[2023-02-06 04:54] LABS: Albumin 2.1 g/dL (3.4-5.0); BUN/Creatinine Ratio 15.7 (10.0-20.0); Calcium 8.2 mg/dL (8.5-10.1); Potassium 3.7 mmol/L (3.5-5.1)
[2023-02-06 04:57] LABS: Bilirubin, Total 0.9 mg/dL (0.2-1.0); Total Protein 5.9 g/dL (6.4-8.2)
[2023-02-06] MEDS: MEROPENEM 1GM IVPB 100 ML IV SCH ×2 (05:11→14:36)
[2023-02-06 05:13] LABS: Basophils % (manual) 0 (0.0-2.0); Blast Cells 0; Metamyelocytes % 0; Myelocytes % 0; Promyelocytes % 0; Reactive Lymphocytes 0
[2023-02-06] MEDS: D5W 5% 1,000 ML IV SCH (05:17)
[2023-02-06 07:20] LABS: Band Neutrophils % (manual) 2; Eosinophils % (manual) 4 (0-7); Lymphocytes % (manual) 16 (10.0-50.0); Monocytes % (manual) 3 (0-12)
[2023-02-06] MEDS: PANTOPRAZOLE 40 MG/10 ML VIAL INJ IV SCH (09:51)
[2023-02-06] MEDS: METOPROLOL TARTRATE 50 MG TAB PO SCH (09:52)
[2023-02-06] MEDS: ASPirin 81 mg TAB PO SCH (09:52)
[2023-02-06] MEDS: ENOXAPARIN SOD 40 MG/0.4 ML SYRINGE SC SCH (09:52)
[2023-02-06] MEDS ORDERED: D5W 5% 1,000 ML IV SCH (10:30)
[2023-02-06] MEDS: LABETALOL INJECTION 250 MG in SODIUM CHL 0.9% 200 ML IV SCH ×2 (11:00→15:10)
[2023-02-06] MEDS: LORazepam 2MG/ML-1ML VIAL IV PRN (14:46)
== END 2023-02-06 17:20 | DRG 870 ==
LOC: EDBD 19:25 → ER 19:25 → TELE 02-02 01:17 → ICU WEST 02-02 03:13
PROVIDERS: ADMIT Internal Medicine; ATTEND Internal Medicine
PROC: 5A1955Z Respiratory Ventilation, Greater than 96 Consecutive Hours (ICD-10-PCS; principal; 2023-02-01)
PROC: 5A12012 Performance of Cardiac Output, Single, Manual (ICD-10-PCS; 2023-02-01)
PROC: 4A10X4Z Monitoring of Central Nervous Electrical Activity, External Approach (ICD-10-PCS; 2023-02-02)
PROC: 02HV33Z Insertion of Infusion Device into Superior Vena Cava, Percutaneous Approach (ICD-10-PCS; 2023-02-02)
PROC: B548ZZA Ultrasonography of Superior Vena Cava, Guidance (ICD-10-PCS; 2023-02-02)
PROC: 4A10X4Z Monitoring of Central Nervous Electrical Activity, External Approach (ICD-10-PCS; 2023-02-05)
DX: A41.9 Sepsis, unspecified organism (principal); G93.6 Cerebral edema; I21.4 Non-ST elevation (NSTEMI) myocardial infarction; J96.00 Acute respiratory failure, unspecified whether with hypoxia or hypercapnia; N17.0 Acute kidney failure with tubular necrosis; J69.0 Pneumonitis due to inhalation of food and vomit; N39.0 Urinary tract infection, site not specified; G93.1 Anoxic brain damage, not elsewhere classified; E87.29 Other acidosis; E87.1 Hypo-osmolality and hyponatremia; J45.902 Unspecified asthma with status asthmaticus; Z99.11 Dependence on respirator [ventilator] status; I46.9 Cardiac arrest, cause unspecified; E66.01 Morbid (severe) obesity due to excess calories; F41.9 Anxiety disorder, unspecified; E87.5 Hyperkalemia; R74.01 Elevation of levels of liver transaminase levels; E78.5 Hyperlipidemia, unspecified; G40.909 Epilepsy, unspecified, not intractable, without status epilepticus; Z88.1 Allergy status to other antibiotic agents; Z82.49 Family history of ischemic heart disease and other diseases of the circulatory system; Z83.3 Family history of diabetes mellitus; Z68.38 Body mass index [BMI] 38.0-38.9, adult
CPT/HCPCS: 36415; 36600; 70450; 71045; 71260; 71275; 72125; 74177; 80048; 80053; 80061; 80202; 80307; 81001; 82550; 82570; 82805; 83036; 83605; 83735; 83880; 83930; 83935; 84156; 84300; 84443; 84484; 85007; 85025; 85027; 85379; 85610; 85730; 87070; 87081; 87205; 92950; 93005; 93306; 93970; 94002; 94003; 94640; 95819; 99291; C9113; G0378; J0131; J1100; J1815; J2185; J2250; J2543; J3480; J3490; J7060